=== PATIENT | male | born 1960 | race Two or more races ===

== ENCOUNTER 2022-11-04 14:13 | Outpatient (CLI) | payer OTHER | END 2022-11-04 14:23 | disposition home or self-care (01) | LOC: PPH VACUNA 14:13 | PROVIDERS: ATTEND Emergency Medicine Pediatric Emergency Medicine | DX: Z23 Encounter for immunization (principal) ==

== ENCOUNTER 2022-11-04 14:13 | Outpatient (CLI) | payer OTHER | END 2022-11-04 14:23 | disposition home or self-care (01) | LOC: PPH VACUNA 14:13 | PROVIDERS: ATTEND Emergency Medicine Pediatric Emergency Medicine | DX: Z23 Encounter for immunization (principal) ==